=== PATIENT | male | born 1950 | race Caucasian/White ===

== ENCOUNTER 2020-06-23 06:01 | Observation (INO) | payer OTHER ==
--- OUTSIDE RECORDS SUMMARY | 2020-06-23 06:04 | XMS REPORT | Continuity of Care Document ---
:1950 Author Organization [facility] t Address [facility] [place] [address] Care Team Providers Name Role Phone Unavailable Unavailable Unavailable Problems Condition Condition Condition Status Onset Resolution Last Treating Co mments Source Name Details Category Date Date Treatment Clinician Date Sciatica, Sciatica, Problem Active [facility] left side [facility] side [facility] Sprain of Sprain of Problem Active [facility] unspecifie unspecifie Deidra kes - d site of d site of Arsh emma left knee, left knee, l subsequent subsequent Ou tpati encounter encounter ent Clinics Pain, Pain, Problem Active [facility] joint, joint, [facility] - knee, left knee, left Me [facility]ia l [facility] Sprain of Sprain of Problem Active [facility] medial medial [facility] - collateral collateral Me moria ligament ligament l of left of left Outpati knee, knee, ent initial initial Clinics encounter encounter Derangemen Derangemen Problem Active [facility] t of [facility] - posterior posterior Arsh emma horn of horn of l medial medial Outpati meniscus meniscus ent due to old due to old Cl inics tear or tear or injury, injury, left knee left knee Unilateral Unilateral Problem Active [facility] primary primary [facility] - osteoarthr osteoarthr Me moria itis of itis of l first first Outpati carpometac carpometac en t arpal arpal Clinics joint, joint, right hand right hand Unilateral Unilateral Problem Active [facility] primary primary [facility] - osteoarthr osteoarthr Me moria itis of itis of l first first Outpati carpometac carpometac en t arpal arpal Clinics joint, joint, left hand left hand Pain, Pain, Problem Active [facility] joint, joint, [facility] - hand, left hand, left Me moria l Outpati ent Clinics Pain, Pain, Problem Active [facility] joint, joint, [facility] - hand, hand, Memoria right right l Outpati ent Clinics Allergies, Adverse Reactions, Alerts This patient has no known allergies or adverse reactions. Medications Ordered Filled Start Stop Current Ordering Indication Dosage Frequency Signature Comments Components Source Medication Medication Date Date Medication? Clinician (SIG) Name Name Dang Leong Yes Bulmaro not [facility] Angulo defined [facility] Ibuprofen Ibuprofen Yes Bulmaro not [facility] Angulo defined [facility] Olmesartan Olmesartan Yes Bulmaro not [facility] Medoxomil-H Medoxomil-H Angulo defined [facility] - CTZ CTZ [facility] Procedures This patient has no known procedures. Encounters Start End Encounter Admission Attending Care Care Encounter Source Date/Time Date/Time Type Type Clinicians Facility Department ID 2019-08-05 2019-08-05 Outpatient Darline Hendrix [id number] [facility] 08:30[facility]00 08[facility]30[facility]00 [facility] 2018-06-11 2018-06-11 Outpatient Darline Hendrix [id number] [facility] 08:30:00 08:30:00 t [facility] 2018-05-28 2018-05-28 Outpatient Darline Hendrix [id number] [facility] 12:55:00 12:55:00 t [facility] 2018-05-27 2018-05-27 Outpatient Darline Hendrix [id number] [facility] 08:30:00 08:30:00 t [facility] Results This patient has no known results.
[2020-06-23 06:44] LABS: Absolute Lymphocytes (CBC) 1.4 K/uL (0.7-4.9); Basophils % 0.8 % (0-1.3); Hematocrit 42.1 % (39.6-49.0); Lymphocytes % 22.9 % (15.3-44.8); MPV 8.2 fL (7.6-11.3); Protime INR 1.1; RBC Red Blood Cell Count 5.08 M/uL (4.33-5.43)
[2020-06-23 07:01] LABS: ALT/SGPT 26 U/L (12-78); AST/SGOT 11 U/L (15-37); Albumin 3.8 g/dL (3.4-5.0); Alkaline Phosphatase 74 U/L (45-117); BUN Blood Urea Nitrogen 19 mg/dL (7-18); Bicarbonate 28 mmol/L (21-32); Bilirubin Direct < 0.1 mg/dL (0-0.2); Bilirubin Total 0.3 mg/dL (0.2-1.0); Glucose Level 121 mg/dL (74-106); Magnesium 2.1 mg/dL (1.8-2.4); NT PRO-BNP 22 pg/mL (<125); Potassium 3.7 mmol/L (3.5-5.1); Protein, Total 6.8 g/dL (6.4-8.2); Sodium Level 142 mmol/L (136-145); Troponin (Emerg Dept Use Only) < 0.02 ng/mL (0.0-0.045)
--- NOTE | 2020-06-23 07:15 | RAD REPORT ---
EXAM DESCRIPTION: CT - Head Brain Wo Cont - 06/23/2020 6:52 am CLINICAL HISTORY: DIZZINESS Headache, drowsiness COMPARISON: No comparisons TECHNIQUE: All CT scans are performed using dose optimization technique as appropriate and may inclu de automated exposure control or mA/KV adjustment according to patient size. FINDINGS: No intracranial hemorrhage, hydrocephalus or extra-axial fluid collection.Mild generalized brain atrophy noted.No areas of brain edema or evidence of midline shift. The paranasal sinuses and mastoids are clear. The calvarium is intact. IMPRESSION: No acute intracranial abnormality.
--- NOTE | 2020-06-23 08:12 | EDPHYS ---
Physician Documentation [facility] Name: Juan Martinez Jr Age: 70 yrs Sex: Male : 1950 Arrival Date: 06/23/2020 Time: 06:10 Bed 20 Private MD: ED Physician Rajesh Griffith HPI: 06/23 06:36 This 70 yrs old Male presents to ER via EMS with complaints of Dizziness. snw 06:36 The patient presents with dizziness, lightheadedness, feeling off balance. Onset: The snw symptoms/episode began/occurred suddenly, this morning. Context: occurred at home, occurred while the patient was sitting, reading his bible, and began feeling dizzy, became diaphoretic and nauseated. Modifying factors: The symptoms are alleviated by nothing, the symptoms are aggravated by nothing. Associated signs and symptoms: Pertinent positives: diaphoresis, nausea, near-syncope, Pertinent negatives: chest pain. Severity of symptoms: At their worst the symptoms were moderate in the emergency department the symptoms have improved mildly. Patient's baseline: Neuro: alert and fully oriented, Motor: no deficits, Ambulation: walks without assistance, Speech: normal. The patient has not experienced similar symptoms in the past. The patient has not recently seen a physician, the patient's primary care provider is Dr. Dr. Robert, It is unknown whether or not the patient has recently seen a physician. pt noted to be bradycardic, pt states he has noted this over the past month on his bp home monitor. Historical: - Allergies: 06:18 No Known Allergies; vc - Home Meds: 06:18 olmesartan oral oral [Active]; vc - PMHx: 06:18 Hypertension; Bradycardia; vc - Immunization history:: Adult Immunizations up to date. - Social history:: Smoking status: Patient denies any tobacco usage or history of. ROS: 06:30 ENT: Negative for injury, pain, and discharge, Neck: Negative for injury, pain, and snw swelling, Cardiovascular: Negative for chest pain, palpitations, and edema, Respiratory: Negative for shortness of breath, cough, wheezing, and pleuritic chest pain. 06:30 Back: Negative for injury and pain, : Negative for injury, bleeding, discharge, and swelling, MS/Extremity: Negative for injury and deformity. 06:30 Psych: Negative for depression, anxiety, suicide ideation, homicidal ideation, and hallucinations. 06:30 Constitutional: Positive for malaise, lightheaded, dizziness, diaphoresis, nausea, denies pain. 06:30 Eyes: Positive for hx of macular edema. 06:30 Abdomen/GI: Positive for nausea. 06:30 Skin: Positive for diaphoresis. 06:30 Neuro: Positive for dizziness, near syncope. Exam: 06:30 Constitutional: This is a well developed, well nourished patient who is awake, alert, snw and in no acute distress. Head/Face: Normocephalic, atraumatic. Eyes: Pupils equal round and reactive to light, extra-ocular motions intact. Lids and lashes normal. Conjunctiva and sclera are non-icteric and not injected. Cornea within normal limits. Periorbital areas with no swelling, redness, or edema. ENT: Nares patent. No nasal discharge, no septal abnormalities noted. Tympanic membranes are normal and external auditory canals are clear. Oropharynx with no redness, swelling, or masses, exudates, or evidence of obstruction, uvula midline. Mucous membranes moist. Neck: Trachea midline, no thyromegaly or masses palpated, and no cervical lymphadenopathy. Supple, full range of motion without nuchal rigidity, or vertebral point tenderness. No Meningismus. Chest/axilla: Normal chest wall appearance and motion. Nontender with no deformity. No lesions are appreciated. Respiratory: Lungs have equal breath sounds bilaterally, clear to auscultation and percussion. No rales, rhonchi or wheezes noted. No increased work of breathing, no retractions or nasal flaring. Abdomen/GI: Soft, non-tender, with normal bowel sounds. No distension or tympany. No guarding or rebound. No evidence of tenderness throughout. Back: No spinal tenderness. No costovertebral tenderness. Full range of motion. Skin: Warm, dry with normal turgor. Normal color with no rashes, no lesions, and no evidence of cellulitis. MS/ Extremity: Pulses equal, no cyanosis. Neurovascular intact. Full, normal range of motion. Psych: Awake, alert, with orientation to person, place and time. Behavior, mood, and affect are within normal limits. 06:30 Cardiovascular: Rate: bradycardic, actual rate is 46 bpm, Rhythm: regular, Pulses: no pulse deficits are appreciated, Heart sounds: normal. 06:30 Neuro: Orientation: is normal, Mentation: is normal, Memory: is normal, Motor: is normal, Sensation: is normal, seizure activity, is not displayed by the patient. Vital Signs: 06:10 BP 134 / 75; Pulse 51; Resp 16; Temp 97.1; Pulse Ox 96% on R/A; Weight 99.79 kg; Height vc 5 ft. 11 in. (180.34 cm); Pain 0/10; 07:00 BP 132 / 82; Pulse 48; Resp 17; Pulse Ox 99% ; bp 08:00 BP 125 / 83; Pulse 51; Resp 13; Pulse Ox 98% ; bp 09:00 BP 128 / 72; Pulse 49; Resp 17; Pulse Ox 97% ; bp 11:00 BP 122 / 75; Pulse 49; Resp 17; Pulse Ox 99% ; bp 12:56 BP 124 / 72; Pulse 59; Resp 21; Pulse Ox 100% ; bp 14:30 BP 114 / 69 Supine; Pulse 52; bp 14:32 BP 125 / 81 Sitting; Pulse 53; bp 14:34 BP 128 / 79; Pulse 57; Resp 17; Temp 98.5; Pulse Ox 99% ; bp 15:40 BP 119 / 75; Pulse 52; Resp 17; Temp 98.5; Pulse Ox 99% ; bp 06:10 Body Mass Index 30.68 (99.79 kg, 180.34 cm) vc 06:10 Patient states his blood pressure runs in the forties and fifties. vc MDM: 06:16 Patient medically screened. snw 08:11 Data reviewed: vital signs, nurses notes. Data interpreted: Pulse oximetry: on room air snw is 99 %. Interpretation: normal. Counseling: I had a detailed discussion with the patient and/or guardian regarding: the historical points, exam findings, and any diagnostic results supporting the discharge/admit diagnosis, the presence of at least one elevated blood pressure reading (>120/80) during this emergency department visit, lab results, radiology results, the need for further work-up and treatment in the hospital. Physician consultation: Ralf Robert MD was called at 08:11, was contacted at 08:11, regarding admission, to the telemetry unit. would like consultation with Cardiology. 06/23 06:17 Order name: Basic Metabolic Panel; Complete Time: 07:02 snw 06/23 06:17 Order name: CBC with Diff; Complete Time: 06:56 snw 06/23 06:17 Order name: LFT's; Complete Time: 07:02 snw 06/23 06:17 Order name: Magnesium; Complete Time: 07:02 snw 06/23 06:17 Order name: NT PRO-BNP; Complete Time: 07:02 snw 06/23 06:17 Order name: PT-INR; Complete Time: 07:22 snw 06/23 06:17 Order name: Troponin (emerg Dept Use Only); Complete Time: 07:02 snw 06/23 06:17 Order name: XRAY Chest (1 view); Complete Time: 08:43 snw 06/23 06:17 Order name: EKG; Complete Time: 06:18 snw 06/23 06:17 Order name: CT Head Brain wo Cont; Complete Time: 07:22 snw 06/23 06:30 Order name: Echo w/ Doppler snw 06/23 09:55 Order name: Diet Heart Healthy; Complete Time: 09:55 bp 06/23 11:05 Order name: Troponin (emerg Dept Use Only) bp 06/23 12:41 Order name: Troponin (Emerg Dept Use Only); Complete Time: 12:42 EDMS 06/23 06:17 Order name: Cardiac monitoring; Complete Time: 06:38 snw 06/23 06:17 Order name: EKG - Nurse/Tech; Complete Time: 06:38 snw 06/23 06:17 Order name: IV Saline Lock; Complete Time: 06:19 snw 06/23 06:17 Order name: Labs collected and sent; Complete Time: 06:19 snw 06/23 06:17 Order name: O2 Per Protocol; Complete Time: 06:19 snw 06/23 06:17 Order name: O2 Sat Monitoring; Complete Time: 06:19 snw Administered Medications: No medications were administered Disposition: 19:37 Co-signature as Attending Physician, Rajesh Griffith MD. [email or web address] Disposition: 06/23/20 08:11 Hospitalization ordered by Ralf Robert for Observation. Preliminary diagnosis are Bradycardia, unspecified, Syncope and collapse. - Bed requested for [facility] ER HOLD. - Status is Observation. bp - Condition is Stable. - Problem is new. - Symptoms are unchanged. Signatures: Dispatcher [employer] EDMS Lisa Black, VEGETABLE II FARMWORKER-C VEGETABLE II FARMWORKER-Csnw Nicole Myers, RN RN ss Alberto Poe, RN RN bp Flower Frances, RN RN vc Rajesh Griffith MD MD [email or web address] Corrections: (The following items were deleted from the chart) 11:35 08:11 Hospitalization Ordered by Ralf Robert MD for Observation. Preliminary diagnosis ss is Bradycardia, unspecified; Syncope and collapse. Bed requested for Telemetry/MedSurg (observation). Status is Observation. Condition is Stable. Problem is new. Symptoms are unchanged. snw 15:41 11:35 06/23/2020 08:11 Hospitalization Ordered by Ralf Robert MD for Observation. bp Preliminary diagnosis is Bradycardia, unspecified; Syncope and collapse. Bed requested for [facility] ER HOLD. Status is Observation. Condition is Stable. Problem is new. Symptoms are unchanged. ss
--- NOTE | 2020-06-23 08:12 | ER ---
Nurse's Notes [facility] Name: Juan Martinez Jr Age: 70 yrs Sex: Male : 1950 Arrival Date: 06/23/2020 Time: 06:10 Bed 20 Private MD: Diagnosis: Bradycardia, unspecified;Syncope and collapse Presentation: 06/23 06:10 Chief complaint: Patient states: " I was sitting on my couch reading my bible when all vc of a sudden I started feeling nauseous, I felt like if I could throw up I would feel better but all I did was dry heave. I stood up and felt dizzy so I thought it would be best if I came in to get checked out, I'm no longer nauseous but I'm still a little dizzy." EMS states: "Patient was negative on our stroke scale, vitals on arrival were 160/90, pulse 54 (patient states he runs in the high forties and low fifties), R 16, 98% on room air.". Coronavirus screen: nausea, At this time, the client does not indicate any symptoms associated with coronavirus-19. Ebola Screen: No symptoms or risks identified at this time. Initial Sepsis Screen: Does the patient meet any 2 criteria? No. Patient's initial sepsis screen is negative. Does the patient have a suspected source of infection? No. Patient's initial sepsis screen is negative. Risk Assessment: Do you want to hurt yourself or someone else? Patient reports no desire to harm self or others. Onset of symptoms was June 23, 2020 at 05:00. Care prior to arrival: Medication(s) given: zofran 4 mg, IV initiated. 20 GA, in the left antecubital area, Glucose check: 144. 06:10 Method Of Arrival: EMS: [facility] vc 06:10 Acuity: NAIF 3 vc Triage Assessment: 07:00 General: Appears in no apparent distress. comfortable, Behavior is calm, cooperative, bp appropriate for age. Historical: - Allergies: 06:18 No Known Allergies; vc - Home Meds: 06:18 olmesartan oral oral [Active]; vc - PMHx: 06:18 Hypertension; Bradycardia; vc - Immunization history:: Adult Immunizations up to date. - Social history:: Smoking status: Patient denies any tobacco usage or history of. Screenin:15 Abuse screen: Denies threats or abuse. Nutritional screening: No deficits noted. vc Tuberculosis screening: No symptoms or risk factors identified. Fall Risk None identified. Assessment: 06:15 General: Appears in no apparent distress. uncomfortable, well groomed, Behavior is vc cooperative, appropriate for age, anxious. Pain: Denies pain. Neuro: Level of Consciousness is awake, alert, obeys commands, Oriented to person, place, time, situation, Appropriate for age. Cardiovascular: Reports diaphoresis, lightheadedness, Denies chest pain, Capillary refill < 3 seconds Patient's skin is warm and dry. Rhythm is sinus bradycardia. Respiratory: Airway is patent Respiratory effort is even, unlabored, Respiratory pattern is regular, symmetrical. GI: No signs and/or symptoms were reported involving the gastrointestinal system. GI: Reports nausea, Patient currently denies abdominal pain, vomiting. : No signs and/or symptoms were reported regarding the genitourinary system. EENT: No signs and/or symptoms were reported regarding the EENT system. Derm: Skin is intact, is healthy with good turgor, Skin temperature is warm. Musculoskeletal: Circulation, motion, and sensation intact. Range of motion: intact in all extremities. 06:41 Reassessment: Patient states he is no longer nauseous but is still feeling "a little vc dizzy". 07:00 Reassessment: RECD REPORT FROM AYALA FINNEGAN. 70YO WM P/W DIZZINESS, S/S NOW RESOLVED. ALL bp CURRENT ORDERS COMPLETED, RESULTS PENDING FOR DISPO. 09:00 Reassessment: ADMIT IN PROCESS. PT PLACED IN HOSPITAL BED FOR COMFORT, CARDIOLOGY C/S bp PENDING. 11:00 Reassessment: CARDIOLOGY AT B/S. PER CARDIOLOGY, REPEAT TROP DUE AT 1200. DR BARKLEY bp [phone]. 12:55 Reassessment: ECHO AT B/S. DR BARKLEY CONTACTED AND INFORMED NEGATIVE TROPONIN. bp CARDIOLOGY RECOMMENDING D/C AND OUTPATIENT F/U. DR ROBERT INFORMED. 14:33 Reassessment: LAB RESULTS UNREMARKABLE. PT NEGATIVE FOR ORTHOSTATIC HYPOTENSION, bp PROVIDER INFORMED. DISPO PENDING. 15:39 Reassessment: PT D/C HOME BY HOSPITALIST, D/C AMBULATORY, DX WITH DIZZINESS. bp Vital Signs: 06:10 BP 134 / 75; Pulse 51; Resp 16; Temp 97.1; Pulse Ox 96% on R/A; Weight 99.79 kg; Height vc 5 ft. 11 in. (180.34 cm); Pain 0/10; 07:00 BP 132 / 82; Pulse 48; Resp 17; Pulse Ox 99% ; bp 08:00 BP 125 / 83; Pulse 51; Resp 13; Pulse Ox 98% ; bp 09:00 BP 128 / 72; Pulse 49; Resp 17; Pulse Ox 97% ; bp 11:00 BP 122 / 75; Pulse 49; Resp 17; Pulse Ox 99% ; bp 12:56 BP 124 / 72; Pulse 59; Resp 21; Pulse Ox 100% ; bp 14:30 BP 114 / 69 Supine; Pulse 52; bp 14:32 BP 125 / 81 Sitting; Pulse 53; bp 14:34 BP 128 / 79; Pulse 57; Resp 17; Temp 98.5; Pulse Ox 99% ; bp 15:40 BP 119 / 75; Pulse 52; Resp 17; Temp 98.5; Pulse Ox 99% ; bp 06:10 Body Mass Index 30.68 (99.79 kg, 180.34 cm) vc 06:10 Patient states his blood pressure runs in the forties and fifties. vc ED Course: 06:10 Patient arrived in ED. vc 06:10 Arm band placed on right wrist. vc 06:10 Patient has correct armband on for positive identification. Bed in low position. Call vc light in reach. Side rails up X2. laborer fryer farm on. Pulse ox on. NIBP on. 06:16 Lisa Black FNP-C is PHCP. snw 06:16 Rajesh Griffith MD is Attending Physician. snw 06:18 Triage completed. vc 06:19 Ayala Frances, SIVAN is Primary Nurse. vc 06:33 Radiology exam delayed due to Having EKG done at this time - asked to come back later. kw1 06:43 XRAY Chest (1 view) In Process Unspecified. EDMS 06:52 CT Head Brain wo Cont In Process Unspecified. EDMS 07:00 Primary Nurse role handed off by Ayala Frances, RN bp 07:00 Alberto Poe, SIVAN is Primary Nurse. bp 07:00 Inserted saline lock: 20 gauge in right antecubital area, using aseptic technique. bp 08:10 Ralf Robert MD is Hospitalizing Provider. snw 14:35 No provider procedures requiring assistance completed. bp 15:40 IV discontinued, intact, bleeding controlled, No redness/swelling at site. Pressure bp dressing applied. Administered Medications: No medications were administered Outcome: 08:11 Decision to Hospitalize by Provider. snw 15:40 Discharged to home ambulatory, with family. bp 15:40 Condition: stable 15:40 Discharge instructions given to patient, Instructed on discharge instructions, follow up and referral plans. Demonstrated understanding of instructions, follow-up care. 15:41 Patient left the ED. bp Signatures: Dispatcher [employer] EDMS Lisa Black, INSTRUCTION ASSISTANT PRINCIPAL-C INSTRUCTION ASSISTANT PRINCIPAL-Csnw Alberto Poe, RN RN bp Steffi [email or web address] Ayala Frances RN RN vc Corrections: (The following items were deleted from the chart) 12:07 11:00 Reassessment: CARDIOLOGY AT B/S. PER CARDIOLOGY, REPEAT TROP DUE AT 1200. DR bp TRIPATHI [phone] bp
--- NOTE | 2020-06-23 08:39 | RAD REPORT ---
EXAM DESCRIPTION: RAD - Chest Single View - 06/23/2020 6:42 am CLINICAL HISTORY: dizzy Chest pain. COMPARISON: No comparisons FINDINGS: Portable technique limits examination quality. The lungs are grossly clear. The heart is normal in size. No displaced fractures. IMPRESSION: No acute intrathoracic process suspected.
--- NOTE | 2020-06-23 13:51 | P.SSS ---
Patient History Date of Service: 06/23/20 Reason for admission: WEAKNESS, DIAPHORESIS, NEAR SYNCOPE. History of Present Illness: MR. FLETCHER AT 4 AM WAS READING BIBLE. HE HAD WEAKNESS, NAUSEA, HEAVING AND DIAPHORESIS. HIS HEART RATE HAS GONE LOW 40. HIS BP HAS BEEN STABLE AT 120/70 HERE. HIS TWO CARDIAC ENZYMES ARE GOOD. HE IS MEDICALLY STABLE. BEFORE THIS HE HAD NO SIGNS OF ANGINA. Review of Systems 10-point ROS is otherwise unremarkable Physical Examination - Physical Exam General: Alert, In no apparent distress HEENT: Atraumatic, PERRLA, Mucous membr. moist/pink, EOMI, Sclerae nonicteric Neck: Supple, 2+ carotid pulse no bruit, No LAD, Without JVD or thyroid abnormality Respiratory: Clear to auscultation bilaterally, Normal air movement Cardiovascular: Regular rate/rhythm, Normal S1 S2 Gastrointestinal: Normal bowel sounds, No tenderness Musculoskeletal: No tenderness Integumentary: No rashes Neurological: Normal gait, Normal speech, Normal strength at 5/5 x4 extr, Normal tone, Normal affect Lymphatics: No axilla or inguinal lymphadenopathy - Studies Laboratory Data (last 24 hrs) 06/23/20 06:24: PT 13.0 H, INR 1.10 06/23/20 06:24: WBC 6.1, Hgb 14.2, Hct 42.1, Plt Count 198 06/23/20 06:24: Sodium 142, Potassium 3.7, BUN 19 H, Creatinine 1.38 H, Glucose 121 H, Magnesium 2.1, Total Bilirubin 0.3, AST 11 L, ALT 26, Alkaline Phosphatase 74 - Diagnosis (Problem(s)) (1) Diaphoresis Current Visit: Yes Status: Acute Plan: THIS MAY BE RELATED TO VAGAL REACTION OF NAUSEA AND HEAVING. IT MAY BE FROM CAD THERE IS NO SIGN OF ACUTE WA. CE NEG. HE HAS BRADYCARDIA WITHOUT USE OF B BLOCKERS. HE MAY HAVE THIS WITH INF. WALL ISCHEMIA. EKG DOES NOT SHOW THAT. HE IS STABLE FOR DISCHARGE WITH ST TEST OP. I TALKED TO DR. REES. HE SAW PATIENT AND HE AGREED WITH DISCHARGE IF HE HAS NO SYMPTOMS AND HIS TROP STAYS NEGATIVE. (2) Nausea Current Visit: Yes Status: Acute (3) Bradycardia Current Visit: Yes Status: Acute (4) Dehydration Current Visit: Yes Status: Acute (5) HTN (hypertension) Current Visit: Yes Status: Acute - Disposition Disposition: ROUTINE DISCHARGE Condition: FAIR Patient Discharge Instructions: I have removed diuretic from his olmesartan and sent rx for Imdur 30 mg. He can take Aspirin [address] Rees for his neg cardiac enzymes. He can fu with dr. Rees to get stress test done. I sent rx from office. Thanks. Diet: Regular Activity: Ad adam
[2020-06-23 15:58] VITALS: TEMP 98.5; O2SAT 99
[2020-06-23 15:59] VITALS: BP 119/75
--- NOTE | 2020-06-23 19:37 | CON ---
Date of Consultation: 06/23/2020 Reason For Consultation: Bradycardia. Requesting Physician: Ralf Robert M.D. History Of Present Illness: This is a 70-year-old male, who was reading his Bible this morning and t hen felt all of a sudden nauseated and felt flushing like and his body became sweaty and nauseated an d has had dry heaves, but did not vomit. Denies having any chest pain. Lasted for a few minutes. A t that time, ambulance was called and his blood pressure was normal 135 range, but has been bradycard ic since then and he came to the emergency room and rate between 38 to 45, but he is completely asymp tomatic. No dizziness. There is no syncope or chest pain. Past Medical History: Hypertension. Medications: He is on losartan. Allergies: NO KNOWN DRUG ALLERGIES. Social History: He does not smoke or drink. Does not use any drugs. Family History: No premature coronary artery disease or cancer. Review of Systems: All systems were reviewed and they were negative except for what mentioned in the HPI. Physical Examination: Vital Signs: His temperature is 98.4, heart rate is 42 but it goes up to 74 with activities, blood p ressure is 125/74, saturating 98% on room air, breathing at 15. General: Pleasant elderly male, in no apparent distress. Head and Neck: Pupils are equal, react to light. Intact eye movements. No JVD. No cervical lympha denopathy. Neck is supple. Thyroid is not enlarged. Lungs: Clear to auscultation bilaterally. No rhonchi, rales, crackles. No accessory muscle use. Heart: Regular rate and rhythm. No extra sounds. Abdomen: Soft, nontender. Bowel sounds positive. No organomegaly. No masses or hernia. No rigidi ty or rebound. Extremities: No edema, clubbing, cyanosis. Intact pulses. Skin: No rash. Neurologic: Alert, awake, oriented x3. No acute focal deficit appreciated. Investigations: Troponins 0.02, 2 sets and they were 6 hours apart. Creatinine is 1.38, sodium 142. Hemoglobin is 14.2. EKG is normal sinus rhythm, rate 47, no ST-T wave abnormalities that are worri some. Assessment And Recommendation: Bradycardia. I do not believe that his symptoms are due to bradycard ia. He has sinus bradycardia; however, the chronotropic response is appropriate. I had him get up a nd move and his heart rate went up to 75. There is no heart block on EKG. I recommend if serial set s of cardiac enzymes are negative and ruled out myocardial infarction, then the patient is okay to be released from my standpoint, but I recommend an evaluation with an exercise stress test and echocard iogram to be done in the next week or two and to report any recurrence of symptoms back to emergency room, especially if he gets dizzy or of any syncopal episode or chest pain. I discussed the case wit h Dr. Robert and agree to the plan and appreciate Dr. Robert for letting me participate in his patient care. /MAHSA Voice ID: [id number] Report ID: [id number]
--- NOTE | 2020-06-26 08:18 | ECHO ---
HEIGHT: 5 ft 11 in WEIGHT: 220 lb 0 oz DATE OF STUDY: 06/23/[address]: Lisa Hampton ANESTHESIA TECHNICIAN-BC 2-DIMENSIONAL: YES M.MODE: YES DOPPLER: YES COLOR FLOW: YES TDS: NO PORTABLE: YES DEFINITY: NO BUBBLE STUDY: NO DIAGNOSIS: DIZZINESS CARDIAC HISTORY: CATHERIZATION: NO SURGERY: NO PROSTHETIC VALVE: NO PACEMAKER: NO MEASUREMENTS (cm) DIASTOLIC (NORMALS) SYSTOLIC (NORMALS) IVSd 1.0 (0.6-1.2) LA Diam (1.9-4.0) LVEF 66% LVIDd 5.6 (3.5-5.7) LVIDs 3.5 (2.0-3.5) %FS 37% LVPWd 1.1 (0.6-1.2) Ao Diam 3.5 (2.0-3.7) 2 DIMENSIONAL ASSESSMENT: RIGHT ATRIUM: NORMAL LEFT ATRIUM: NORMAL RIGHT VENTRICLE: NORMAL LEFT VENTRICLE: NORMAL TRICUSPID VALVE: NORMAL MITRAL VALVE: PULMONIC VALVE: AORTIC VALVE: MILD CALCIFICATION PERICARDIAL EFFUSION: NONE AORTIC ROOT: NORMAL LEFT VENTRICULAR WALL MOTION: NORMAL DOPPLER/COLOR FLOW: NORMAL COMMENTS: NORMAL LEFT VENTRICULAR EJECTION FRACTION 55-60%. NORMAL WALL MOTION ABNORMALITY. MILD PULMONARY INSUFFICIENCY. MILD MITRAL REGURGITATION. TECHNOLOGIST: Sascha RIZZO
== END 2020-06-23 15:41 | disposition home or self-care (01) ==
LOC: ER 06:01 → ERHOLD 08:18
PROVIDERS: ADMIT Internal Medicine; ATTEND Internal Medicine
DX: R61 Generalized hyperhidrosis (principal); R00.1 Bradycardia, unspecified; I25.10 Atherosclerotic heart disease of native coronary artery without angina pectoris; R11.0 Nausea; E86.0 Dehydration; I10 Essential (primary) hypertension; J98.4 Other disorders of lung; I34.0 Nonrheumatic mitral (valve) insufficiency; Z79.899 Other long term (current) drug therapy
CPT/HCPCS: 93005; 93306; 85025; 80048; 36415; 83735; 85610; 80076; 84484 ×2; 83880; 70450; 71045; 99284; G0378 ×2